=== PATIENT | male | born 1950 | race African-American/Black ===

== ENCOUNTER → 2016-11-04 | Outpatient (CLI) | payer MEDICARE | LOC: KOH-I 11:56 | DX: J32.8 Other chronic sinusitis (principal); J32.4 Chronic pansinusitis; J34.2 Deviated nasal septum; J34.89 Other specified disorders of nose and nasal sinuses | CPT/HCPCS: 70486 ==

== ENCOUNTER → 2020-07-14 | Outpatient (CLI) | payer MEDICARE ==
[~2020-07-14] MED LIST: FLEXERIL 10 MG10 MG PO
== END ==
LOC: KOH-I 11:30
DX: J32.4 Chronic pansinusitis (principal); J34.89 Other specified disorders of nose and nasal sinuses
CPT/HCPCS: 70486

== ENCOUNTER 2021-10-17 20:07 | Emergency (ER) | payer MEDICARE | END 2021-10-17 22:10 | disposition home or self-care (01) | LOC: ER1 20:07 | DX: S01.112A Laceration without foreign body of left eyelid and periocular area, initial encounter (principal); S01.81XA Laceration without foreign body of other part of head, initial encounter; S81.012A Laceration without foreign body, left knee, initial encounter; S61.411A Laceration without foreign body of right hand, initial encounter; Z23 Encounter for immunization; I11.9 Hypertensive heart disease without heart failure; Z88.2 Allergy status to sulfonamides; W19.XXXA Unspecified fall, initial encounter | CPT/HCPCS: 12001; 70450; 70486; 73130; 73562; 90471; 90714; 90715; 99283 ==